=== PATIENT | female | born 1945 | race Caucasian/White ===

== ENCOUNTER → 2017-07-29 | Outpatient (CLI) | payer MEDICARE ==
--- NOTE | 2017-07-29 17:09 | WWHP ---
[facility] - HISTORY AND PHYSICAL DATE OF DICTATION: 07/29/2017 CHIEF COMPLAINT: The patient is here for her routine gynecologic exam and mammogram. HISTORY OF PRESENT ILLNESS: This is a 72-year-old G2, P2 with an LMP of 1987. The patient is without gynecologic complaints and denies any postmenopausal bleeding. PAST MEDICAL HISTORY: 1. Chronic hypertension. 2. Osteopenia. MEDICATIONS: 1. Triamterene with hydrochlorothiazide 37.5/25 one every other day. 2. Aspirin 81 mg daily. 3. Multivitamin daily. 4. Calcium with vitamin D one daily. 5. Fish oil supplement daily. ALLERGIES: NO KNOWN DRUG ALLERGIES. PAST SURGICAL HISTORY: 1. Right foot surgery 2005. 2. Colonoscopy 2013. 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 FAMILY HISTORY: Mother from brain tumor. SOCIAL HISTORY: She denies tobacco, alcohol and drug use. She is a and is not sexually active. She is retired. REVIEW OF SYSTEMS: She has lost 3 pounds over the last year. She denies respiratory, cardiac or GI problems. She denies maltreatment or falling. : She denies any significant problems with urinary leakage. PHYSICAL EXAMINATION: Blood pressure 137/80, height 5 feet 7 inches, weight 207 pounds. BMI 32. Temperature 98.1, pulse 66. This is a well-developed, well-nourished white female who is alert and oriented x3, in no acute distress. HEENT: Within normal limits. NECK: Supple without mass or thyromegaly CHEST AND LUNGS: Clear to auscultation. HEART: Regular rate and rhythm. Breasts are without mass or discharge. Axillary exam is negative for adenopathy, back negative for CVA tenderness. ABDOMEN: Soft, nontender, without palpable masses. PELVIC EXAMINATION: External genitalia reveal mild to moderate atrophy without lesions. Cervix and vagina reveal a grade 1-2 cystocele which is stable from her previous exam. There is no other evidence of prolapse. The uterus is mid position, nongravid size and nontender. There are no palpable adnexal masses or tenderness. Rectovaginal exam is negative for mass or tenderness and is negative for occult blood. EXTREMITIES: Nontender. IMPRESSION: 1. Oyvtpap-hoh-xhud-old menopausal female with asymptomatic grade 1-2 cystocele, which is stable. 2. Otherwise unremarkable gynecologic exam. 3. History of osteopenia. PLAN: 1. Pap smear was performed. 2. Self breast examination was discussed. 3. Screening mammogram will be done today. 4. Osteoporosis prevention was discussed. Bone density testing will be done today. 5. The patient did get her flu shot this past fall. 6. She will return in one year. MMODL / ARELISN: [id number] /
--- NOTE | 2017-07-30 12:05 | BD ---
EXAMINATION TYPE: MG DEXA axial skeleton. DATE OF EXAM: 07/29/2017 COMPARISON: 03/08/2014 CLINICAL HISTORY: Postmenopausal female. Osteoporosis screening. Height: 65 IN Weight: 205 LBS FRAX RISK QUESTIONS: Alcohol (3 or more units per day): NO Family History (Parent hip fracture): NO Glucocorticoids (More than 3mos): NO (Ex: prednisone, prednisolone, methylprednisolone, dexamethasone, and hydrocortisone). History of Fracture in Adulthood: NO Secondary Osteoporosis: 1. Type 1 Diabetes: NO 2. Hyperthyroidism: NO 3. Menopause before 45: YES AGE 35 4. Malnutrition: NO 5. Chronic liver disease: NO Rheumatoid Arthritis: NO Current Tobacco Use: NO RISK FACTORS HISTORY OF: Active: YES Diet low in dairy products/other sources of calcium: YES Postmenopausal woman: AGE 35 Lost more than 2 inches in height since high school: YES 06/24" MEDICATIONS: Additional Medications: CALCIUM, VIT D, BLOOD PRESSURE MEDS, FISH OIL, BABY ASPIRIN, EXAM MEASUREMENTS: Bone mineral densitometry was performed using the [employer] System. Bone mineral density as measured about the Lumbar spine is: ----- L1-L4(G/cm2): 1.304 T Score Values are as follows: ----- L2: 2.0 ----- L3: 0.8 ----- L4: 0.9 ----- L1-L4: 1.0 Bone mineral density has: Increased 5.9% since study of: 03/08/2014 Bone mineral density about the R hip (g/cm2): 0.845 Bone mineral density about the L hip (g/cm2): 0.845 T Score values are as follows: -----R Neck: -1.4 -----L Neck: -1.4 -----R Total: 0.0 -----L Total: 0.0 Bone mineral density has: Decreased -0.3% since study of: 03/08/2014 IMPRESSION: Osteopenia (T Score between -2.5 and -1 as noted) by T score values with regards to the bilateral hip s. There is slightly increased risk of fracture and the patient may be considered for treatment. Re-Screen 2-5 years. NOTE: T-SCORE=SD OF THE YOUNG ADULT MEAN.
--- NOTE | 2017-07-30 13:17 | MM ---
Reason for exam: screening (asymptomatic). Last mammogram was performed 1 year and 2 months ago. History: Patient is postmenopausal. Took hormonal contraceptives for 1 year beginning at age 28. Physical Findings: A clinical breast exam by your physician is recommended on an annual basis and results should be correlated with mammographic findings. MG 3D Screening Mammo W/Cad Bilateral CC and MLO view(s) were taken. Prior study comparison: May 22, 2016, bilateral MG 3d screening mammo w/cad. April 04, 2015, bilateral MG screening mammo w CAD. There are scattered fibroglandular densities. There are benign appearing similar bilateral round oval circumscribed masses back to 2013. No suspicious abnormality. No significant changes when compared with prior studies. ASSESSMENT: Benign, BI-RAD 2 RECOMMENDATION: Routine screening mammogram of both breasts in 1 year.
== END | disposition home or self-care (01) ==
LOC: WWCWWP 13:36
PROVIDERS: ATTEND Obstetrics & Gynecology
DX: Z12.31 Encounter for screening mammogram for malignant neoplasm of breast (principal); M85.852 Other specified disorders of bone density and structure, left thigh; M85.851 Other specified disorders of bone density and structure, right thigh; Z78.0 Asymptomatic menopausal state
CPT/HCPCS: 77063; 77067; 77080

== ENCOUNTER → 2018-12-29 | Outpatient (CLI) | payer MEDICARE, OTHER ==
[2018-12-29 10:48] VITALS: BP 133/79; PULSE 65; RESP 18; TEMP 98.1; BMI 33.6
--- NOTE | 2018-12-29 11:35 | P.HPOB ---
History of Present Illness H&P Date: 12/29/18 Chief Complaint: The patient is here for her routine gynecologic exam. This is a 73 year old with an LMP of 1987. The patient is without gynecologic complaints and denies any postmenopausal bleeding. Review of Systems She has lost 5 pounds over the past year. She denies respiratory, cardiac and G.I. problems. She denies maltreatment or problems with falling. : she denies any significant problems with urinary leakage, but feels she cannot hold her urine as long and occasionally leaks if she coughs hard. Past Medical History Past Medical History: Hypertension Additional Past Medical History / Comment(s): Osteopenia. 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 History of Any Multi-Drug Resistant Organisms: None Reported Past Surgical History: Orthopedic Surgery Additional Past Surgical History / Comment(s): Right foot surgery. Colonoscopy 2013(next after 10 yrs). Past Psychological History: No Psychological Hx Reported Smoking Status: Former smoker Past Alcohol Use History: None Reported Past Drug Use History: None Reported Additional History: She is a and is not sexually active. She is retired. - Past Family History Mother Family Medical History: Cancer Additional Family Medical History / Comment(s): Brain tumor. Medications and Allergies Home Medications Medication Instructions Recorded Confirmed Type Ascorbic Acid [Vitamin C] 500 mg PO DAILY 12/29/18 12/29/18 History Aspirin 81 mg PO DAILY 12/29/18 12/29/18 History Calcium Carbonate [Calcium] 600 mg PO DAILY 12/29/18 12/29/18 History Cholecalciferol (Vitamin D3) 5,000 unit PO DAILY 12/29/18 12/29/18 History [Vitamin D3] Multivitamin [Multivitamins Adult 1 each PO DAILY 12/29/18 12/29/18 History Gummies] Honeydew-3 Fatty Acids/Fish Oil [Fish 1 each PO DAILY 12/29/18 12/29/18 History Oil 1,000 mg Softgel] Triamterene/Hydrochlorothiazid 1 each PO DAILY 12/29/18 12/29/18 History [Triamterene-Hctz 37.5-25 mg Tb] Allergies Allergy/AdvReac Type Severity Reaction Status Date / Time No Known Allergies Allergy Unverified 12/29/18 10:48 Exam Vital Signs Temp Pulse Resp BP Pulse Ox 12/29/18 10:41 98.1 F 65 18 133/79 94 L Intake and Output 12/28/18 12/29/18 12/29/18 22:59 06:59 14:59 Other: Weight 91.626 kg Height 5'5", weight 202 pounds, BMI 33.6. This is a well-developed well-nourished white female who is alert and oriented times 3 in no acute distress. HEENT: Within normal limits. NECK: Supple without mass or thyromegaly. CHEST AND LUNGS: Clear to auscultation. HEART: Regular rate and rhythm. BREASTS: Are without mass or discharge. There is central nipple inversion bilaterally. The patient states it has been this way for many years. AXILLARY EXAM: Negative for adenopathy. BACK: Negative for CVA tenderness. ABDOMEN: Soft, nontender, without palpable masses. PELVIC EXAM: Normal external genitalia with mild to moderate atrophy. Cervix and vagina appear normal with mild to moderate atrophy. There is no unusual discharge. There is a grade to assist a seal which is stable from her previous exam. There is mild urethral mobility with cough. No urinary leakage was dem onstrated. The uterus is midposition, nongravid size and nontender. There are no palpable adnexal masses or tenderness. RECTAL EXAM: rectovaginal exam is negative for mass or tenderness and is negati ve for occult blood. EXTREMITIES: Nontender. IMPRESSION: 1. 73-year-old menopausal female with asymptomatic grade 2 cystocele which is stable. 2. Mild stress urinary incontinence. 3. Osteopenia PLAN: 1. Pap smears have been discontinued. She has had no history of cervical problems, she has been adequately screened and is greater than 65 years of age. 2. Self breast awareness was discussed with the patient. 3. The patient had a screening mammogram done on for 09/23/18 at [facility]. This did require a right breast workup including a right breast ultrasound. This was found to be probably benign and a six-month diagnostic right mammogram was recommended. The order slip was given to the patient for this. 4. Osteoporosis prevention was discussed. I have stressed the importance of adequate calcium, vitamin D and regular exercise. Recommended amounts of calcium and vitamin D were also discussed. We plan on repeating the bone density testing in approximately 1-2 years. 5. She does get flu shots in the fall. 6.She was advised to return in 1-2 years for her well woman exam.
== END | disposition home or self-care (01) ==
LOC: WWCWWP 10:32
PROVIDERS: ATTEND Obstetrics & Gynecology
DX: Z53.9 Procedure and treatment not carried out, unspecified reason (principal)